=== PATIENT | male | born 1990 | race Caucasian/White ===

== ENCOUNTER 2016-10-12 11:54 | Emergency (ER) | payer BC ==
[2016-10-12] MEDS ORDERED: LORazepam 2 MG/ML INJ ONE (11:59)
[2016-10-12] MEDS ORDERED: LORazepam 2 MG/ML INJ IVP ONE (12:00)
[2016-10-12] MEDS ORDERED: NS 1,000 ML IV ONE (12:00)
--- NOTE | 2016-10-12 12:03 | EDPHY ---
H & P Time Seen by Provider: 10/12/16 12:00 HPI/ROS: CHIEF COMPLAINT: Witnessed seizure HISTORY OF PRESENT ILLNESS: 26-year-old male presents to the emergency department by ambulance after having a witnessed seizure at work today. The co- worker states that the patient had tonic-clonic seizure lasting 3-5 minutes. He was postictal. EMS was called. Upon arrival by EMS patient was beginning to clear. He does remember doing to work this morning. Denies any reported head injury. He drinks only occasional alcohol. He does smoke marijuana daily. Denies any other substance abuse. He feels very tired. Denies chest pain or difficulty breathing. Mild headache. He did bite his tongue. He was not incontinent of urine. REVIEW OF SYSTEMS: Constitutional: No fever, no chills. Eyes: No double or blurry vision. ENT: No sore throat. Respiratory: No cough, no shortness of breath. Cardiac: No chest pain. Gastrointestinal: No abdominal pain, vomiting or diarrhea. Genitourinary: No dysuria. Musculoskeletal: No neck or back pain. Skin: No rashes. Neurological: headache. (Faiza Wooten M) Past Medical/Surgical History: Negative (Faiza Wooten M) Social History: Single (Faiza Wooten M) Physical Exam: General Appearance: Alert, no distress. Mentating normally and answering questions appropriately. No visible signs of trauma to his head. Eyes: Pupils equal and round. Extraocular motions are all intact. ENT: Mouth: Mucous membranes moist. Abrasions noted to the anterior aspect of the tongue. No suturable lacerations noted. No active bleeding noted. No dental injury or malocclusion. Respiratory: No wheezing, rhonchi, or rales, lungs are clear to auscultation. Cardiovascular: Regular rate and rhythm. Gastrointestinal: Abdomen is soft and nontender, no masses, no rebound or guarding, bowel sounds normal. Neurological: Alert and oriented x 3, cranial nerves II through XII grossly intact Skin: Warm and dry, no rashes. Musculoskeletal: Nontender to palpate along the cervical, thoracic or lumbar spine. Neck is supple. Extremities: Full range of motion and no peripheral edema. Psychiatric: Patient is oriented X 3, there is no agitation. (Geetha Wootena M) Constitutional: Initial Vital Signs Temperature (C) 36.1 C 10/12/16 11:54 Heart Rate 80 10/12/16 11:54 Respiratory Rate 20 10/12/16 11:54 Blood Pressure 114/74 10/12/16 11:54 O2 Sat (%) 98 10/12/16 11:54 O2 Delivery Mode Room Air Allergies/Adverse Reactions: No Known Allergies Allergy (Unverified 10/12/16 12:06) Home Medications: Medication Instructions Recorded NK [No Known Home Meds] 10/12/16 Medical Decision Making - Diagnostics Imaging: CT imaging of the brain was normal. This was reported to me by Dr. Brandon Plascencia. (Faiza Wooten) ED Course/Re-evaluation: I also saw this patient in the emergency department. I reviewed the history of no previous seizure. Daily marijuana smoker. Occasional alcohol. History per EMS is 3-4 minute generalized tonic-clonic seizure while at work today Exam shows stable vital signs. Patient has multiple bites to the tongue but is otherwise neurologically intact IV normal saline, seizure precautions I discussed and reviewed the workup with the PA including head CT (Stephen Clifton) Patient was given 1 mg Ativan IV and had no recurring seizure activity. Laboratory studies were all within normal limits. Of note his CO2 was normal because this had to be repeated because the initial blood sent to the lab obtained by EMS was rejected. His girlfriend is at bedside upon discharge and I did explain to her that he should not drive a car, climb ladders, operating machinery, until cleared by neurologist. She verbalized understanding and agreed. Patient had no complaints upon discharge. CT imaging of the brain for first-time seizure was obtained which was normal. He will return if he has any recurring seizure activity. I did also speak with his mother via phone with girlfriend's request. (Faiza Wooten) Differential Diagnosis: Seizure including but not limited to electrolyte abnormality, alcohol withdrawal , medication noncompliance, head injury, and breakthrough seizure. (Faiza Wooten) - Data Points Laboratory Results: Laboratory Results 10/12/16 12:15 10/12/16 12:49 10/12/16 10/12/16 10/12/16 12:49 12:15 12:15 WBC 8.08 10^3/uL 10^3/uL (3.80-9.50) RBC 5.31 10^6/uL 10^6/uL (4.40-6.38) Hgb 16.3 g/dL g/dL (13.7-17.5) Hct 48.0 % % (40.0-51.0) MCV 90.4 fL fL (81.5-99.8) MCH 30.7 pg pg (27.9-34.1) MCHC 34.0 g/dL g/dL (32.4-36.7) RDW 12.7 % % (11.5-15.2) Plt Count 240 10^3/uL 10^3/uL (150-400) MPV 10.9 fL fL (8.7-11.7) Neut % (Auto) 72.7 % % (39.3-74.2) Lymph % (Auto) 19.4 % % (15.0-45.0) [place] % (Auto) 5.0 % % (4.5-13.0) Eos % (Auto) 0.7 % % (0.6-7.6) Baso % (Auto) 0.6 % % (0.3-1.7) Nucleat RBC Rel Count 0.0 % % (0.0-0.2) Absolute Neuts (auto) 5.87 10^3/uL 10^3/uL (1.70-6.50) Absolute Lymphs (auto) 1.57 10^3/uL 10^3/uL (1.00-3.00) Absolute Monos (auto) 0.40 10^3/uL 10^3/uL (0.30-0.80) Absolute Eos (auto) 0.06 10^3/uL 10^3/uL (0.03-0.40) Absolute Basos (auto) 0.05 10^3/uL 10^3/uL (0.02-0.10) Absolute Nucleated RBC 0.00 10^3/uL 10^3/uL (0-0.01) Immature Gran % 1.6 % H % (0.0-1.1) Immature Gran # 0.13 10^3/uL H 10^3/uL (0.00-0.10) Turbidity TNP Sodium 142 mEq/L mEq/L TNP (134-144) Potassium 5.1 mEq/L mEq/L TNP (3.5-5.2) Chloride 109 mEq/L mEq/L TNP (97-110) Carbon Dioxide 23 mEq/l mEq/l TNP (22-31) Anion Gap 10 mEq/L mEq/L TNP (8-16) BUN 12 mg/dL mg/dL TNP (7-23) Creatinine 0.8 mg/dL mg/dL TNP (0.7-1.3) Estimated GFR > 60 TNP Glucose 95 mg/dL mg/dL TNP (70-100) Calcium 9.7 mg/dL mg/dL TNP (8.5-10.4) Specimen Hemolysis 158 REJ Medications Given: Discontinued Medications Sodium Chloride (Ns) 1,000 mls @ 0 mls/hr IV ONCE ONE PRN Reason: Wide Open Stop: 10/12/16 12:01 Last Admin: 10/12/16 12:21 Dose: 1,000 mls Lorazepam (Ativan Injection) 1 mg IVP EDNOW ONE Stop: 10/12/16 12:01 Last Admin: 10/12/16 12:17 Dose: 1 mg Departure - Departure Disposition: Home, Routine, Self-Care Clinical Impression: Seizure Condition: Good Instructions: Nonepileptic Seizures (ED) Additional Instructions: You should not drive a car, operate any machinery until cleared by neurologist. Referrals: Kenji Levi MD [Medical Doctor] - 5-7 days, call for appt. (Neurologist on-call) Stand Alone Forms: Work Excuse
[2016-10-12 12:23] LABS: % IMMATURE GRANULYOCYTES 1.6 % (0.0-1.1); ABSOLUTE IMMATURE GRANULOCYTES 0.13 10^3/uL (0.00-0.10); ADD DIFF? NO; ADD MORPH? NO; ADD SCAN? NO; ATYPICAL LYMPHOCYTE FLAG 0 (0-99); FRAGMENT RBC FLAG 0 (0-99); HEMOGLOBIN 16.3 g/dL (13.7-17.5); LEFT SHIFT FLG 10 (0-99); LIPEMIA HEMOLYSIS FLAG 90 (0-99); MEAN CELL HEMOGLOBIN 30.7 pg (27.9-34.1); MEAN CELL VOLUME 90.4 fL (81.5-99.8); MEAN PLATELET VOLUME 10.9 fL (8.7-11.7); PLATELET CLUMPS FLAG 0 (0-99); PLATELET COUNT 240 10^3/uL (150-400); RED BLOOD CELL COUNT 5.31 10^6/uL (4.40-6.38); RED CELL DISTRIBUTION WIDTH 12.7 % (11.5-15.2)
[2016-10-12 13:29] LABS: ANION GAP 10 mEq/L (8-16); CALCIUM 9.7 mg/dL (8.5-10.4); CARBON DIOXIDE 23 mEq/l (22-31); CHLORIDE 109 mEq/L (97-110); CREATININE 0.8 mg/dL (0.7-1.3); GLOMERULAR FILTRATION RATE > 60; GLUCOSE 95 mg/dL (70-100); POTASSIUM 5.1 mEq/L (3.5-5.2); SODIUM 142 mEq/L (134-144); SPECIMEN HEMOLYSIS 158
[2016-10-12 14:31] VITALS: BP 117/76; PULSE 68; RESP 18; TEMP 97.9; O2SAT 98
== END 2016-10-12 14:34 | disposition home or self-care (01) ==
DX: R56.9 Unspecified convulsions (principal)
CPT/HCPCS: 96374; J2060

== ENCOUNTER → 2016-10-23 | Outpatient (CLI) | payer BC | LOC: FIMAGING 12:29 | PROVIDERS: ATTEND Psychiatry & Neurology Neurology | DX: R56.9 Unspecified convulsions (principal) ==

== ENCOUNTER → 2016-11-02 | Outpatient (CLI) | payer BC ==
--- NOTE | 2016-11-02 16:10 | CPEEG ---
[f rep st] ELECTROENCEPHALOGRAM DATE OF STUDY: 11/02/2016 DATE OF INTERPRETATION: 11/02/2016. INTERPRETATION: This 4-hour video EEG recording is normal. There were no potentially epileptogenic abnormalities present during the awake or sleep recordings. During the video EEG monitoring myke smalls, the patient did not have any clinical events. REPORT: This 4-hour video EEG contains 10 Hz alpha to the posterior head regions. There was no abn ormal activation at rest, during photic stimulation, or hyperventilation. The patient became drowsy and fell into sustained sleep during the study. There was no abnormal activation during drowsiness , sustained sleep, or during times of arousal. The patient did not have any clinical events during the video EEG monitoring session. /[id number]/MODL
== END ==
LOC: FCPNEURO 08:46
PROVIDERS: ATTEND Psychiatry & Neurology Neurology
DX: R56.9 Unspecified convulsions (principal)

== ENCOUNTER 2017-04-28 05:20 | Emergency (ER) | payer BC ==
[2017-04-28] MEDS ORDERED: levETIRAcetam 1,000 MG in NS 100 ML IV ONE (05:24)
[2017-04-28] MEDS ORDERED: NS 1,000 ML IV ONE (05:24)
--- NOTE | 2017-04-28 05:29 | EDPHY ---
H & P HPI/ROS: HPI CHIEF COMPLAINT: Seizure HISTORY OF PRESENT ILLNESS: This patient otherwise healthy 27-year-old male no significant medical history however he did have a seizure in September. 1st time. He was followed up by Dr. LEVI with Neurology. At that time he had a negative EEG and a MRI of the brain. He did have a CT scan on his last ER visit that was normal. He presents emergency room after he had a seizure. Patient was found to be postictal by EMS. He did bite the left lateral aspect of his tongue. And the forefront of his tongue. No significant laceration. Denies any injuries. Upon arrival to the emergency room is alert or x4. GCS 15. Does not appear confused. Resting. No complaints. He does smoke marijuana. Denies other illicit drugs or alcohol. Given this is his 2nd seizure will start him on IV Keppra Keppra load 1 g. will check basic blood work IV hydration monitor here in emergency room. I do not feel that he needs new imaging. However additionally he will need to follow up with neurology. Dr. LEVI again. He understands he cannot drive until cleared by Neurology. Past Medical History: Previous history of 1 seizure. Past Surgical History: No recent surgery Social History: Smokes marijuana, denies other illicit drugs alcohol. Family History: Noncontributory ROS REVIEW OF SYSTEMS: A comprehensive 10 point review of systems is otherwise negative aside from elements mentioned in the history of present illness. Exam Constitutional appears well nontoxic triage nursing summary reviewed, vital signs reviewed, awake/alert. Eyes normal conjunctivae and sclera, EOMI, PERRLA. HENT oropharynx: Tongue: Obvious tongue bite jose at the distal aspect of the left side of the tongue, left lateral tongue. Otherwise unremarkable. No significant laceration. normal inspection, atraumatic, moist mucus membranes, no epistaxis, neck supple/ no meningismus, no raccoon eyes. Respiratory clear to auscultation bilaterally, normal breath sounds, no respiratory distress, no wheezing. Cardiovascular rate normal, regular rhythm, no murmur, no edema, distal pulses normal. Gastrointestinal soft, non-tender, no rebound, no guarding, normal bowel sounds, no distension, no pulsatile mass. Genitourinary no CVA tenderness. Musculoskeletal no midline vertebral tenderness, full range of motion, no calf swelling, no tenderness of extremities, no meningismus, good pulses, neurovascularly intact. Skin pink, warm, & dry, no rash, skin atraumatic. Neurologic awake, alert and oriented x 3, AAOx3, moves all 4 extremities equally, motor intact, sensory intact, CN II-XII intact, normal cerebellar, normal vision, normal speech. Psychiatric normal mood/affect. Heme/Lymph/Immune no lymphadenopathy. Differential Diagnosis: Includes but is not limited to in a particular order: Seizure, epilepsy, electrolyte disturbance, bite jose the tongue Medical Decision Making: Plan for this patient monitor closely emergency room further seizure activity. 1 g IV Keppra load. Started on Keppra orally. Close follow-up neurology. 2nd seizure. He understands. No driving. Check electrolytes. Gentle IV hydration. Patient understands no driving until cleared by Neurology. Source: Patient, EMS - Medical/Surgical History Hx Asthma: No Hx Chronic Respiratory Disease: No Hx Diabetes: No Hx Cardiac Disease: No Hx Renal Disease: No Hx Cirrhosis: No Hx Alcoholism: No Hx HIV/AIDS: No Hx Splenectomy or Spleen Trauma: No Other PMH: Migraines - Social History Smoking Status: Current some day smoker Constitutional: Initial Vital Signs Temperature (C) 36.7 C 04/28/17 05:25 Heart Rate 76 04/28/17 05:25 Respiratory Rate 16 04/28/17 05:25 Blood Pressure 95/68 L 04/28/17 05:25 O2 Sat (%) 95 04/28/17 05:25 O2 Delivery Mode Room Air Allergies/Adverse Reactions: No Known Allergies Allergy (Unverified 04/28/17 05:44) Home Medications: Medication Instructions Recorded NK [No Known Home Meds] 10/12/16 Medical Decision Making - Data Points Laboratory Results: Laboratory Results 04/28/17 05:20 04/28/17 05:20 04/28/17 04/28/17 05:20 05:20 WBC REJ RBC REJ Hgb REJ Hct REJ MCV REJ MCH REJ MCHC REJ RDW REJ Plt Count REJ MPV REJ Neut % (Auto) REJ Lymph % (Auto) REJ Boundary % (Auto) REJ Eos % (Auto) REJ Baso % (Auto) REJ Nucleat RBC Rel Count REJ Absolute Neuts (auto) REJ Absolute Lymphs (auto) REJ Absolute Monos (auto) REJ Absolute Eos (auto) REJ Absolute Basos (auto) REJ Absolute Nucleated RBC REJ Immature Gran % REJ Immature Gran # REJ Sodium 144 mEq/L mEq/L (134-144) Potassium 4.5 mEq/L mEq/L (3.5-5.2) Chloride 104 mEq/L mEq/L (97-110) Carbon Dioxide 20 mEq/l L mEq/l (22-31) Anion Gap 20 mEq/L H mEq/L (8-16) BUN 15 mg/dL mg/dL (7-23) Creatinine 1.0 mg/dL mg/dL (0.7-1.3) Estimated GFR > 60 Glucose 92 mg/dL mg/dL (70-100) Calcium 10.3 mg/dL mg/dL (8.5-10.4) Medications Given: Discontinued Medications Sodium Chloride (Ns) 1,000 mls @ 0 mls/hr IV EDNOW ONE; Wide Open PRN Reason: Protocol Stop: 04/28/17 05:25 Last Admin: 04/28/17 05:36 Dose: 1,000 mls Levetiracetam 1,000 mg/ Sodium (Chloride) 110 mls @ 440 mls/hr IV EDNOW ONE Stop: 04/28/17 05:38 Last Admin: 04/28/17 06:09 Dose: 110 mls Departure - Departure Disposition: Home, Routine, Self-Care Clinical Impression: Seizure Condition: Good Instructions: Epilepsy (ED), Recurrent Seizures in Adults (ED) Additional Instructions: 1. Please follow up with Neurology. Please call their for an appointment. 2. Tells him here in the emergency room for 2nd time for seizure and started on seizure medication. You should see again. 3. Additionally do not drive until you are cleared by Neurology. Referrals: NONE *PRIMARY CARE P,. [Primary Care Provider] - As per Instructions Kenji Levi MD [Medical Doctor] - As per Instructions
[2017-04-28 05:46] VITALS: RESP 16; TEMP 98.1
[2017-04-28 06:04] LABS: ANION GAP 20 mEq/L (8-16); CALCIUM 10.3 mg/dL (8.5-10.4); CARBON DIOXIDE 20 mEq/l (22-31); CHLORIDE 104 mEq/L (97-110); GLOMERULAR FILTRATION RATE > 60; GLUCOSE 92 mg/dL (70-100); POTASSIUM 4.5 mEq/L (3.5-5.2); SODIUM 144 mEq/L (134-144)
[2017-04-28 06:21] LABS: % IMMATURE GRANULYOCYTES 0.3 % (0.0-1.1); ABSOLUTE IMMATURE GRANULOCYTES 0.02 10^3/uL (0.00-0.10); ADD DIFF? NO; ADD MORPH? NO; ADD SCAN? NO; ATYPICAL LYMPHOCYTE FLAG 10 (0-99); FRAGMENT RBC FLAG 0 (0-99); HEMATOCRIT 43.3 % (40.0-51.0); HEMOGLOBIN 14.9 g/dL (13.7-17.5); LEFT SHIFT FLG 0 (0-99); LIPEMIA HEMOLYSIS FLAG 90 (0-99); MEAN CELL HEMOGLOBIN 31.4 pg (27.9-34.1); MEAN CELL HEMOGLOBIN CONCENTR. 34.4 g/dL (32.4-36.7); MEAN CELL VOLUME 91.2 fL (81.5-99.8); MEAN PLATELET VOLUME 10.4 fL (8.7-11.7); PLATELET CLUMPS FLAG 0 (0-99); PLATELET COUNT 187 10^3/uL (150-400); RED BLOOD CELL COUNT 4.75 10^6/uL (4.40-6.38); RED CELL DISTRIBUTION WIDTH 12.6 % (11.5-15.2)
[2017-04-28 07:03] VITALS: BP 118/78; PULSE 71; O2SAT 97
== END 2017-04-28 07:01 | disposition home or self-care (01) ==
LOC: EDUNIT#
DX: G40.909 Epilepsy, unspecified, not intractable, without status epilepticus (principal); F17.200 Nicotine dependence, unspecified, uncomplicated; E86.9 Volume depletion, unspecified
CPT/HCPCS: 96365; J1953

== ENCOUNTER → 2017-05-23 | Outpatient (CLI) | payer BC ==
--- NOTE | 2017-05-23 20:47 | CPEEG ---
[f rep st] ELECTROENCEPHALOGRAM 4-HOUR VIDEO EEG. DATES OF STUDY: 05/23/2017. INTERPRETATION: This 4-hour video EEG recording is normal. There were no potentially epileptogenic abnormalities present during the awake or sleep recordings. During the video EEG monitoring session, the patient did not have any clinical events. REPORT: This 4-hour video EEG contains 10 Hz alpha to the posterior head regions. The background activity was normal and symmetric. There was no abnormal activation at rest, during photic stimulation or hyperventilation. The patient became drowsy, and fell into sustained sleep during the study. There was no abnormal activation during drowsiness, sleep, or during times of arousal. The patient did not have any clinical events during the video EEG monitoring session. /[id number]/MODL MTDD
== END ==
LOC: FCPNEURO 08:41
PROVIDERS: ATTEND Psychiatry & Neurology Neurology
DX: G40.909 Epilepsy, unspecified, not intractable, without status epilepticus (principal)